=== PATIENT | female | born 1940 ===

== ENCOUNTER 2023-09-01 00:33 | Outpatient (OUT) | payer MEDICARE, SELFPAY ==
[2023-09-01 07:05] LABS: Anion Gap 5.7; Carbon Dioxide 42.2 mmol/L (21.0-32.0); Chloride 97 mmol/L (98-107); Potassium 3.9 mmol/L (3.5-5.1); Sodium 141 mmol/L (136-145)
== END 2023-09-01 00:34 | disposition home or self-care (01) ==
LOC: LAB 09-29 10:18
PROVIDERS: PCP Nurse Practitioner Adult Health; Visit Provider Nurse Practitioner Adult Health
DX: J96.01 Acute respiratory failure with hypoxia (principal)
CPT/HCPCS: 36415; 80051